=== PATIENT | male | born 1945 | race Caucasian/White ===

== ENCOUNTER 2018-06-24 08:59 | Outpatient (CLI) | payer MEDICARE | END 2018-06-24 09:00 | disposition home or self-care (01) | LOC: CTENTCT 08:59 | PROVIDERS: ATTEND Otolaryngology Plastic Surgery within the Head & Neck | DX: J32.9 Chronic sinusitis, unspecified (principal) | CPT/HCPCS: 70486 ==

== ENCOUNTER 2018-10-07 08:08 | Outpatient (CLI) | payer MEDICARE ==
--- NOTE | 2018-10-07 09:24 | CT ---
CT CHEST WITHOUT CONTRAST: Date: 10/07/18 Multiple axial tomograms obtained through chest. Pulmonary screening protocol was followed. INDICATION: Personal history of tobacco use. FINDINGS: Mild interstitial thickening in the periphery of both lungs. There is no evidence of pulmonary mass o r nodule. No evidence of infiltrate or effusion. Mediastinum unremarkable. No adenopathy. Images through upper abdomen show small cysts in the left lobe of the liver. Osseous structures unrem arkable. IMPRESSION: No acute findings. Lung-RADS 2. Recommend yearly annual low dose CT chest screening. POS: TPC
== END 2018-10-07 08:09 | disposition home or self-care (01) ==
LOC: CT 08:08
PROVIDERS: ATTEND Family Medicine
DX: Z87.891 Personal history of nicotine dependence (principal)
CPT/HCPCS: G0297

== ENCOUNTER 2018-10-16 08:56 | Outpatient (CLI) | payer MEDICARE ==
[2018-10-16] MEDS ORDERED: Gadobenate Dimeglumine 529 MG/1 ML (20ML VIAL) ONE (10:52)
--- NOTE | 2018-10-16 11:50 | MRI ---
MR OF THE PELVIS WITH AND WITHOUT CONTRAST INDICATION: Prostate Cancer COMPARISON: None TECHNIQUE: Multiplanar, multisequence MR images were obtained of the pelvis with and without IV contr ast. 14 cc of MultiHance was utilized for the examination. The examination was reviewed on a separate [employer] 3-D workstation for multiplanar metric evaluation. FINDINGS: Prostate size: The prostate measured 4.6 x 4.0 x 4.2cm. 31.47 cc. Peripheral zone: No area of restricted diffusion is seen within the peripheral zone. There are scatte red areas of wavy hypointensity involving the peripheral zone of the prostate gland. Central zone: No suspicious signal abnormality or focal lesion. There are numerous well encapsulated BPH nodule seen within the central zone of the prostate. Neural vasculature: No evidence of neurovascular invasion Regional lymphadenopathy: None Dynamic contrast enhancement: Negative. Osseous structures: No suspicious marrow signal abnormality is evident. There is a 1.3 cm right para labral cyst seen along the superior margin of the right acetabulum. Additional findings: None.. IMPRESSION: 1. PIRADS 2- Low (clinically significant cancer is unlikely to be present.) 2. Right hip paralabral cyst likely related to an underlying right acetabular labral tear.
== END 2018-10-16 08:57 | disposition home or self-care (01) ==
LOC: TBSIIMAG 08:56
PROVIDERS: ATTEND Urology
DX: C61 Malignant neoplasm of prostate (principal); M24.852 Other specific joint derangements of left hip, not elsewhere classified
CPT/HCPCS: 72197; 82565; A9577

== ENCOUNTER 2019-03-10 09:14 | Outpatient (CLI) | payer MEDICARE ==
--- NOTE | 2019-03-10 11:31 | ULT ---
SOFT TISSUE ULTRASOUND RIGHT AXILLA: Date: 03/10/19 INDICATION: Right axillary mass. COMPARISON: CT from 10/07/18 from [facility]. FINDINGS: There is a 4.4 x 1.4 cm fat signal intensity mass lesion within the palpable region and suspicious fo r subcutaneous lipoma. No additional mass lesion is noted. IMPRESSION: Subcutaneous lipoma of the right axillary region. POS: OFF
== END 2019-03-10 09:15 | disposition home or self-care (01) ==
LOC: BICULT 09:14
PROVIDERS: ATTEND Family Medicine
DX: R22.31 Localized swelling, mass and lump, right upper limb (principal); D17.39 Benign lipomatous neoplasm of skin and subcutaneous tissue of other sites
CPT/HCPCS: 76999; 80053; 80061; 85025; 85610; 85730

== ENCOUNTER 2019-03-14 06:05 | Day surgery (SDC) | payer MEDICARE ==
[2019-03-10 08:36] VITALS: BMI 24.3
[2019-03-14] MEDS ORDERED: Lidocaine 1% (PF) 30 ML VIAL ONE (08:31)
[2019-03-14] MEDS ORDERED: Verapamil 5 MG/2 ML VIAL ONE (08:31)
[2019-03-14] MEDS ORDERED: Nitroglycerin 100MG/250ML BOT 250 ML ONE (08:31)
[2019-03-14] MEDS ORDERED: Heparin 10,000 UNITS/1 ML VIAL ONE (08:31)
[2019-03-14] MEDS ORDERED: Midazolam HCl 2 mg/2 ml Vial ONE (08:46)
[2019-03-14] MEDS ORDERED: Fentanyl 100 MCG/2 ML VIAL ONE (08:46)
[2019-03-14] MEDS ORDERED: Iopamidol 370 76% 50 ML VIAL FS ONE (12:25)
[2019-03-14] MEDS ORDERED: Iopamidol 370 76% 100 ML VIAL ONE (12:25)
--- NOTE | 2019-03-14 18:51 | EKG ---
Test Reason : POST STENT - RCA Blood Pressure : / mmHG Vent. Rate : 070 BPM Atrial Rate : 070 BPM P-R Int : 186 ms QRS Dur : 096 ms QT Int : 390 ms P-R-T Axes : 064 043 050 degrees QTc Int : 421 ms Normal sinus rhythm Normal ECG No previous ECGs available Confirmed by DR. Carmencita MEDINA MD ([id number]) on 03/14/2019 6:51:10 PM Referred By: PHUC Confirmed By:DR. Carmencita MEDINA MD
== END 2019-03-14 14:06 | disposition home or self-care (01) ==
LOC: CCL 06:05
PROVIDERS: ATTEND Internal Medicine Cardiovascular Disease
PROC: 02703DZ Dilation of Coronary Artery, One Artery with Intraluminal Device, Percutaneous Approach (ICD-10-PCS; principal; 2019-03-14)
PROC: 4A023N7 Measurement of Cardiac Sampling and Pressure, Left Heart, Percutaneous Approach (ICD-10-PCS; 2019-03-14)
PROC: B2111ZZ Fluoroscopy of Multiple Coronary Arteries using Low Osmolar Contrast (ICD-10-PCS; 2019-03-14)
PROC: B2151ZZ Fluoroscopy of Left Heart using Low Osmolar Contrast (ICD-10-PCS; 2019-03-14)
DX: I25.10 Atherosclerotic heart disease of native coronary artery without angina pectoris (principal); C61 Malignant neoplasm of prostate; I65.23 Occlusion and stenosis of bilateral carotid arteries; E78.5 Hyperlipidemia, unspecified; G47.30 Sleep apnea, unspecified; Z79.51 Long term (current) use of inhaled steroids; Z79.82 Long term (current) use of aspirin; Z79.899 Other long term (current) drug therapy; Z95.5 Presence of coronary angioplasty implant and graft
CPT/HCPCS: 85347; 92928; 93005; 93458; 99152; C1769; C1876; C1887; J1644; J2001; J2250; J3010; Q9967

== ENCOUNTER 2019-07-19 06:01 | Inpatient (IN) | payer MEDICARE ==
[2019-07-19 06:32] LABS: #Basophils 0.1 thou/uL (0.0-0.2); #Eosinphils 0.2 thou/uL (0.0-0.7); #Lymphocytes 1.7 thou/uL (1.20-3.40); #Monocytes 0.8 thou/uL (0.11-0.59); #Neutrophils 4.6 thou/uL (1.40-6.50); %Basophils 0.9 % (0.0-1.0); %Eosinophils 2.2 % (0.0-10.0); %Lymphocytes 23.6 % (21.0-51.0); %Monocytes 11.1 % (0.0-10.0); %Neutrophils 62.3 % (42.0-75.0); Hemoglobin 15.4 g/dL (14.0-18.0); Mean Corpuscular HGB CONC 33.6 g/dL (32.0-36.0); Mean Corpuscular Hemoglobin 34.4 pg (27.0-31.0); Mean Platelet Volume 7.9 fL (7.4-10.4); Platelet Count 185 thou/uL (130-400); RBC Distribution Width 12.2 % (11.5-14.5); Red Blood Cell (RBC) Count 4.49 mill/uL (4.70-6.10); White Blood Cell (WBC) Count 7.4 thou/uL (4.8-10.8)
[2019-07-19 06:57] LABS: ALT (SGPT) 25 U/L (8-55); AST (SGOT) 23 U/L (5-34); Alkaline Phosphatase 83 U/L (40-110); Anion Gap 12 mmol/L (10-20); BUN (Urea Nitrogen) 14 mg/dL (8.4-25.7); Bilirubin, Total 0.5 mg/dL (0.2-1.2); CK (CPK) 82 U/L (30-200); Calc. Creatinine Clearance 0 mL/min (70-130); Carbon Dioxide 25 mmol/L (23-31); Chloride 107 mmol/L (98-107); Estimated GFR-MDRD 66; Globulin 2.6 g/dL (2.4-3.5); Glucose 137 mg/dL (83-110); Lipase 48 U/L (8-78); Potassium 3.9 mmol/L (3.5-5.1); Protein, Total 6.6 g/dL (5.8-8.1); Sodium 140 mmol/L (136-145)
[2019-07-19 07:18] LABS: CKMB 2.3 ng/mL (0-6.6)
[2019-07-19] MEDS ORDERED: Enoxaparin Sodium 80 MG/0.8 ML SYRINGE ONE (07:53)
[2019-07-19 08:51] VITALS: BMI 25.2
--- NOTE | 2019-07-19 08:59 | RAD ---
CHEST 1 VIEW: HISTORY: Chest pain. COMPARISON: None. FINDINGS: Atherosclerosis of the aortic knob. Normal cardiac silhouette. The pulmonary vessels and hilum are normal. Chronic changes of the lung parenchyma are suspected. No consolidation or mass. No pneumot horax or osseous abnormalities. IMPRESSION: 1. Atherosclerosis. 2. No acute cardiopulmonary process. POS: PPP
[2019-07-19 09:35] LABS: Troponin I 0.067 ng/mL (< 0.028)
[2019-07-19 12:44] LABS: Troponin I 0.048 ng/mL (< 0.028)
[2019-07-19] MEDS ORDERED: Nitroglycerin 0.4 MG TAB (25 Tab Bottle) SL PRN (13:00)
[2019-07-19] MEDS ORDERED: NICOTINE POLACRILEX 2 MG FS PRN (13:00)
[2019-07-19] MEDS: Nitroglycerin 2% Ointment 1 INCH/1 GM Packet TOP SCH (15:05)
--- NOTE | 2019-07-19 15:18 | CON ---
DATE OF CONSULTATION: 07/19/2019 REASON FOR CONSULTATION: Recurrent angina. PRIMARY NOVELTY TWISTER OPERATOR: Mckinley Whittington MD HISTORY OF PRESENT ILLNESS: Mr. Buck is a very pleasant 73-year-old gentleman with history of CAD, status post stent placement in the remote past. He had re-in-stent restenosis and underwent a second stent recently. A bare-metal stent was placed. He states over the last several weeks, he has had increased angina with little exertion. He has continued to take his medications as prescribed. PAST MEDICAL HISTORY: CAD, status post stent placement; hyperlipidemia; prostate cancer; sleep apnea; and carotid disease. HOME MEDICATIONS: Include; 1. Multivitamin. 2. Cialis. 3. Testosterone. 4. Vitamin B. 5. Atorvastatin. 6. Brilinta. PAST SURGICAL HISTORY: Prostate biopsy; stent placement in 2000, 2018; and appendectomy. FAMILY HISTORY: Negative for CAD. SOCIAL HISTORY: Positive tobacco use. ALLERGIES: NONE. REVIEW OF SYSTEMS: Ten-point review of systems is reviewed as above, otherwise negative. PHYSICAL EXAMINATION: GENERAL: Patient is a pleasant man, who is in no acute distress. The patient appears their stated age. VITAL SIGNS: Blood pressure 135/66, pulse 78, and temperature 98.4. NEUROLOGIC: The patient is alert and oriented x3 with no focal neurologic deficits. HEENT: Sclerae without icterus. Mouth has moist mucous membranes with normal pallor. NECK: No JVD. Carotid upstroke brisk. No bruits bilaterally. LUNGS: Clear to auscultation with unlabored respirations. BACK: No scoliosis or kyphosis. CARDIAC: Regular rate and rhythm with normal S1 and S2. No S3 or S4 noted. No significant rubs, murmurs, thrills, or gallops noted throughout the precordium. PMI is not displaced. There is no parasternal heave. ABDOMEN: Soft, nontender, nondistended. No peritoneal signs present. No hepatosplenomegaly. No abnormal striae. EXTREMITIES: 2+ femoral and 2+ dorsalis pedis pulses. No cyanosis, clubbing, or edema. SKIN: No gross abnormalities. PERTINENT LABORATORY DATA: Hemoglobin 15.4. Peak troponin 0.067, downtrending to 0.048. EKG, normal sinus rhythm, nonspecific ST-T wave changes. IMPRESSION: 1. Recurrent chest pain. 2. Coronary artery disease. 3. Status post stent placement. RECOMMENDATIONS: Mr. Buck likely has in-stent restenosis. Last stent was placed 4 months ago. At this point, we would recommend continued Lovenox to the weekend. We will add nitroglycerin paste. He does take Cialis, but states his last Cialis was on Sunday. We would recommend coronary angiography plus PCI. I discussed procedure in full detail with Mr. Buck. Risks included, not limited to the following: , stroke, [place], need for emergency surgery, loss of limb, bleeding, and infection, as well as a reaction to the dye causing kidney failure and needing long-term dialysis. I also discussed the risks of PCI to include all of the above including coronary dissection and perforation in addition to acute stent thrombosis and restenosis. All questions about the procedure were answered. Given the above, the patient agreed to proceed with coronary angiography and possible PCI. All questions were answered. He would likely benefit from a drug coated stent. He would like to think about his options. Job ID: [id number]
[2019-07-19] MEDS ORDERED: Diazepam 5 MG TAB PO PRN (17:08)
[2019-07-19] MEDS ORDERED: Diazepam 5 MG TAB PO SCH (17:15)
[2019-07-19] MEDS ORDERED: Thiamine HCl 200 MG/2 ML VIAL IM SCH (17:15)
[2019-07-19] MEDS: Atorvastatin Calcium 20 MG TAB PO SCH (20:08)
[2019-07-19] MEDS: Enoxaparin Sodium 80 MG/0.8 ML SYRINGE SC SCH (20:08)
[2019-07-19] MEDS: Aspirin 81 mg Enteric Coated Tablet PO SCH (20:08)
[2019-07-19] MEDS: TICAGRELOR 90 MG TABLET PO SCH (20:08)
[2019-07-20] MEDS: Nitroglycerin 2% Ointment 1 INCH/1 GM Packet TOP SCH ×4 (00:15→23:44)
[2019-07-20] MEDS ORDERED: Diazepam 5 MG TAB PO PRN (04:00)
--- NOTE | 2019-07-20 05:24 | HP ---
PRIMARY CARE PROVIDER: Doron Jade DO CHIEF COMPLAINT: Chest pain. HISTORY OF PRESENT ILLNESS: Mr. Buck is a pleasant 73-year-old gentleman, who was seen at [facility] on July 19, 2019. He reports that he had PCI with coronary stent in 1999. He had repeat cardiac catheterization on March 14, 2019. He was found to have severe mid RCA disease. He had PCI with 3.5 x 32 mm bare metal stent, which was on top of an old stent placed in 1999. He had no other significant coronary artery disease and was advised dual antiplatelet therapy for one month. He reports that he actually took Brilinta for two months and after discussion with his painter, Dr. Whittington, he stopped taking Brilinta. Over the last 3-4 weeks, he has been having chest discomfort. He reports that it was initially occurring mainly at night, retrosternal, radiating down the left arm, achy type of sensation. He has been taking nitrates for relief. The pain was responding to nitrates, but would recur within a couple of hours. The frequency of chest discomfort has been gradually worsening. Last night, he had multiple episodes and could not find relief. He also reports that the chest discomfort is occurring with rest. He denies any accompanying shortness of breath, nausea, vomiting, or diarrhea. He cannot recall any aggravating factors, but reports improvement with nitrates. In the emergency room, he was diagnosed with unstable angina. He received therapeutic Lovenox. He reports that after receiving Lovenox, he has not had recurrence of chest discomfort in several hours. The patient reports that he started taking Brilinta approximately a month ago and he has been taking it two times a day. His last dose was last night. REVIEW OF SYSTEMS: All systems were reviewed and found to be negative except for the pertinent positives mentioned above. PAST MEDICAL HISTORY: Prostate cancer, hypertension, and coronary artery disease. PAST SURGICAL HISTORY: Coronary stents x2, appendectomy, and sinus surgery. SOCIAL HISTORY: The patient drinks about six beers a day. He is an ex-smoker. He denies any recreational drug use. FAMILY HISTORY: He denies any family history of premature coronary artery disease. CODE STATUS: I discussed his code status. He is DNAR. PHYSICAL EXAMINATION: GENERAL: On examination, Mr. Buck is awake and alert, not in acute distress. VITAL SIGNS: Blood pressure is 135/66, pulse 78, respiratory rate 14, and oxygen saturation 97% on room air. He is afebrile. EYES: No scleral icterus. No conjunctival pallor. ENT: Moist mucosal membranes. No oropharyngeal erythema or exudates. NECK: Supple, nontender, trachea is midline. RESPIRATORY: Accessory muscles of breathing are not active. Chest wall movements are symmetric bilaterally. Lungs are clear to auscultation without wheeze, rhonchi, or crepitations. CARDIOVASCULAR: S1 and S2 are heard, regular. Peripheral pulses palpable. ABDOMEN: Soft and nontender. Bowel sounds are heard. NEUROLOGIC: Cranial nerves 2 through 12 are intact. SKIN: No rashes or subcutaneous nodules. LYMPHATIC: No cervical lymphadenopathy. MUSCULOSKELETAL: Power is 5/5 in all 4 extremities. PSYCHIATRIC: Normal mood. Normal affect. The patient is oriented to person, place, and time. LABORATORY DATA: Mr. Buck's labs and investigations were reviewed. I reviewed his electrocardiogram, which shows normal sinus rhythm, ST depressions in the lateral leads. I also reviewed his chest x-ray, which does not show any pulmonary infiltrates. He has an unremarkable CBC, unremarkable comprehensive metabolic profile, and indeterminate troponin-I of 0.048 to 0.067. ASSESSMENT AND PLAN: Mr. Buck is a pleasant 73-year-old gentleman, who was seen at [facility] on 07/19/2019. His problem list includes: 1. Chest pain: Mr. Buck is presenting with chest pain. Given his significant cardiac history, he will be admitted to the hospital for treatment for unstable angina. 2. Unstable angina: Mr. Buck has received a dose of Lovenox in the emergency room. I will continue him on therapeutic Lovenox and continue aspirin and Brilinta for now. We will await Cardiology Service recommendations. 3. Daily alcohol use: We will start him on ASE protocol. 4. Dyslipidemia: Continue atorvastatin. 5. Hypertension: Continue lisinopril. Monitor vital signs and titrate antihypertensives as needed. Many thanks for allowing me to participate in your patient's care. Please feel free to contact me with any questions or concerns. LEVEL OF RISK: High. LEVEL OF COMPLEXITY: High. Job ID: [id number]
[2019-07-20] MEDS ORDERED: Communication Order-Pharmacy FS SCH (06:30)
[2019-07-20] MEDS: Folic Acid 1 MG TAB PO SCH (09:56)
[2019-07-20] MEDS: Multivitamin W/ Minerals 1 TAB PO SCH (09:57)
[2019-07-20] MEDS: Lisinopril 2.5 MG TAB PO SCH (09:57)
[2019-07-20] MEDS: Magnesium Oxide 400 MG TAB PO SCH (09:57)
[2019-07-20] MEDS: Thiamine 100 MG TAB PO SCH (09:57)
[2019-07-20] MEDS: TICAGRELOR 90 MG TABLET PO SCH ×2 (09:57→21:08)
[2019-07-20] MEDS: Fluticasone Propionate Nasal Spray 16 gm Bottle NASAL SCH (09:58)
[2019-07-20] MEDS: Enoxaparin Sodium 80 MG/0.8 ML SYRINGE SC SCH ×2 (09:58→21:17)
[2019-07-20] MEDS: Multivit, Therapeutic 1 TAB PO SCH (09:58)
--- NOTE | 2019-07-20 12:52 | PDOC.HOSPP ---
- Subjective Encounter Date: 07/20/19 Encounter Time: 08:00 Subjective: Pt seen for followup re: unstable angina. No chest pain since admission. - Objective Vital Signs & Weight: Vital Signs (12 hours) Temp Pulse Resp BP Pulse Ox 07/20/19 11:21 98.7 F 68 14 116/59 L 95 07/20/19 07:36 97.7 F 64 16 117/64 96 07/20/19 04:00 98.3 F 72 18 96/43 L 97 Weight Weight 166 lb Result Diagrams: 07/19/19 06:11 07/19/19 06:11 Additional Labs: Labs and MARs reviewed by sc Hospitalist ROS - Review of Systems Constitutional: denies: fever, chills, sweats, weakness, malaise Respiratory: denies: cough, dry, shortness of breath, hemoptysis, SOB with excertion, pleuritic pain, sputum, wheezing Cardiovascular: denies: chest pain, palpitations, orthopnea, paroxysmal noc. dyspnea, edema, light headedness Gastrointestinal: denies: nausea, vomiting, abdominal pain, diarrhea, constipation, melena, hematochezia Musculoskeletal: denies: neck pain, shoulder pain, arm pain, back pain, hand pain, leg pain, foot pain - Medication Medications: Active Medications Generic Name Dose Route Start Last Admin Trade Name Freq PRN Reason Stop Dose Admin Aspirin 81 mg 07/19/19 21:00 07/19/19 20:08 Ecotrin PO 81 mg QPM LENNY Administration Atorvastatin Calcium 20 mg 07/19/19 21:00 07/19/19 20:08 Lipitor PO 20 mg HS LENNY Administration Enoxaparin Sodium 80 mg 07/19/19 21:00 07/20/19 09:58 Lovenox SC 07/20/19 22:00 80 mg 0900,2100 LENNY Administration Fluticasone Propionate 0 gm 07/20/19 09:00 07/20/19 09:58 Flonase Nasal [place] NASAL 2 spr DAILY LENNY Administration Folic Acid 1 mg 07/20/19 09:00 07/20/19 09:56 Folvite PO 1 mg DAILY LENNY Administration Iron/Minerals/Multivitamins 1 tab 07/20/19 09:00 07/20/19 09:57 Theragran M PO 1 tab DAILY LENNY Administration Lisinopril 2.5 mg 07/20/19 09:00 02/09/20 09:57 Zestril PO 2.5 mg DAILY LENNY Administration Magnesium Oxide 400 mg 07/20/19 09:00 07/20/19 09:57 Magnesium Oxide PO 400 mg DAILY LENNY Administration Metoprolol Succinate 25 mg 07/20/19 09:00 07/20/19 09:57 Toprol Xl PO 25 mg DAILY LENNY Administration Multivitamins 1 tab 07/20/19 09:00 07/20/19 09:58 Theragran PO Not Given DAILY [facility] Nitroglycerin 0.5 inch 07/19/19 15:00 07/20/19 08:06 Nitro-Bid 2% Ointment TOP Not Given 0700,1500,2300 LENNY Thiamine HCl 100 mg 07/20/19 09:00 07/20/19 09:57 Thiamine PO 100 mg DAILY LENNY Administration Ticagrelor 90 mg 07/19/19 21:00 07/20/19 09:57 Brilinta PO 90 mg BID LENNY Administration - Exam General Appearance: NAD Eye: anicteric sclera ENT: moist mucosa Neck: supple, symmetric, no JVD, no thyromegaly Heart: RRR, no gallops, no rubs, normal peripheral pulses Respiratory: CTAB, no wheezes, no rales, no ronchi, normal chest expansion Gastrointestinal: soft, non-tender, non-distended, normal bowel sounds Musculoskeletal: normal tone, normal strength Psychiatric: normal affect, normal behavior, A&O x 3 Hosp A/P (1) Unstable angina Status: Acute (2) HTN (hypertension) Code(s): I10 - ESSENTIAL (PRIMARY) HYPERTENSION Status: Chronic (3) Dyslipidemia Code(s): E78.5 - HYPERLIPIDEMIA, UNSPECIFIED Status: Chronic (4) Alcohol dependence, daily use Code(s): F10.20 - ALCOHOL DEPENDENCE, UNCOMPLICATED Status: Chronic - Plan continue therapeutic Lovenox. Pt will likely have cath tomorrow. HTN controlled. Continue Lipitor. Continue ASE protocol.
--- NOTE | 2019-07-20 13:39 | PDOC.CPN ---
- Subjective Date: 07/20/19 Time: 12:30 Interval history: Patient without c/o pain. Walked entire lund today. - Review of Systems General: denies: fever/chills, weight/appetite/sleep changes, night sweats, fatigue Respiratory: denies: cough, congestion, shortness of breath, exercise intolerance Cardiovascular: denies: chest pain, palpitation, edema, paroxysmal nocturnal dyspnea, orthopnea Gastrointestinal: denies: nausea, vomiting, diarrhea, constipation, abd pain, GI bleeding Musculoskeletal: denies: pain, tenderness, stiffness, swelling, arthritis/ arthralgias Neurological: denies: numbness, syncope, seizure, weakness - Objective Allergies/Adverse Reactions: Allergies Allergy/AdvReac Type Severity Reaction Status Date / Time No Known Allergies Allergy Verified 07/19/19 08:52 Visit Medications: Current Medications Aspirin (Ecotrin) 81 mg PO QPM [facility] Last Admin: 07/19/19 20:08 Dose: 81 mg Atorvastatin Calcium (Lipitor) 20 mg PO HS [facility] Last Admin: 07/19/19 20:08 Dose: 20 mg Diazepam (Valium) 5 mg PO Q4H PRN PRN Reason: FOR ASE 10 OR GREATER Enoxaparin Sodium (Lovenox) 80 mg SC 0900,2100 [facility] Stop: 07/20/19 22:00 Last Admin: 07/20/19 09:58 Dose: 80 mg Fluticasone Propionate (Flonase Nasal [place]) 0 gm NASAL DAILY [facility] Last Admin: 07/20/19 09:58 Dose: 2 spr Folic Acid (Folvite) 1 mg PO DAILY [facility] Last Admin: 07/20/19 09:56 Dose: 1 mg Sodium Chloride (Normal Saline 0.9%) 1,000 mls @ 100 mls/hr IV .Q10H [facility] Iron/Minerals/Multivitamins (Theragran M) 1 tab PO DAILY [facility] Last Admin: 07/20/19 09:57 Dose: 1 tab Lisinopril (Zestril) 2.5 mg PO DAILY [facility] Last Admin: 07/20/19 09:57 Dose: 2.5 mg Magnesium Oxide (Magnesium Oxide) 400 mg PO DAILY [facility] Last Admin: 07/20/19 09:57 Dose: 400 mg Metoprolol Succinate (Toprol Xl) 25 mg PO DAILY [facility] Last Admin: 07/20/19 09:57 Dose: 25 mg Miscellaneous Information (Communication Order-Pharmacy) 0 each FS ONE [facility] Stop: 07/21/19 20:00 Multivitamins (Theragran) 1 tab PO DAILY [facility] Last Admin: 07/20/19 09:58 Dose: Not Given Nitroglycerin (Nitrostat) 0.4 mg SL Q5M PRN PRN Reason: Chest Pain Nitroglycerin (Nitro-Bid 2% Ointment) 0.5 inch TOP 0700,1500,2300 [facility] Last Admin: 07/20/19 08:06 Dose: Not Given Nicotine Polacrilex ([Nicotine Gum] 2 Mg) 0 each FS Q1H PRN PRN Reason: Smoking Cessation Thiamine HCl (Thiamine) 100 mg PO DAILY [facility] Last Admin: 07/20/19 09:57 Dose: 100 mg Ticagrelor (Brilinta) 90 mg PO BID [facility] Last Admin: 07/20/19 09:57 Dose: 90 mg Vital Signs & Weight: Vital Signs Temp Pulse Resp BP Pulse Ox 07/20/19 11:21 98.7 F 68 14 116/59 L 95 07/20/19 07:36 97.7 F 64 16 117/64 96 07/20/19 04:00 98.3 F 72 18 96/43 L 97 Weight 166 lb - Physical Exam General: alert & oriented x3, appears well HEENT: mucus membranes moist Neck: supple neck Cardiac: regular rate and rhythm Lungs: clear to auscultation Neuro: grossly intact Abdomen: unremarkable, soft Extremities: no cyanosis Skin: clear Musculoskeletal: no pain - Labs Result Diagrams: 07/19/19 06:11 07/19/19 06:11 Troponin/CKMB CK-MB (CK-2) 2.3 ng/mL (0-6.6) 07/19/19 06:11 Troponin I 0.048 ng/mL (< 0.028) H 07/19/19 11:58 - Assessment/Plan Assessment/Plan: 1. UA 2. CAD s/p previous PCI Currently pain controlled. Will keep NPO and await angio in AM.
[2019-07-20] MEDS: Aspirin 81 mg Enteric Coated Tablet PO SCH (21:08)
[2019-07-20] MEDS: Atorvastatin Calcium 20 MG TAB PO SCH (21:08)
[2019-07-21 04:54] LABS: #Basophils 0.1 thou/uL (0.0-0.2); #Eosinphils 0.2 thou/uL (0.0-0.7); #Lymphocytes 2.6 thou/uL (1.20-3.40); #Monocytes 0.9 thou/uL (0.11-0.59); #Neutrophils 4.7 thou/uL (1.40-6.50); %Basophils 0.9 % (0.0-1.0); %Eosinophils 1.9 % (0.0-10.0); %Monocytes 10.5 % (0.0-10.0); %Neutrophils 55.8 % (42.0-75.0); Hemoglobin 16.1 g/dL (14.0-18.0); Mean Corpuscular HGB CONC 33.1 g/dL (32.0-36.0); Mean Corpuscular Hemoglobin 33.4 pg (27.0-31.0); Mean Platelet Volume 8.2 fL (7.4-10.4); Platelet Count 182 thou/uL (130-400); RBC Distribution Width 11.9 % (11.5-14.5); Red Blood Cell (RBC) Count 4.81 mill/uL (4.70-6.10); White Blood Cell (WBC) Count 8.4 thou/uL (4.8-10.8)
[2019-07-21 05:19] LABS: Anion Gap 13 mmol/L (10-20); BUN (Urea Nitrogen) 16 mg/dL (8.4-25.7); Calc. Creatinine Clearance 76 mL/min (70-130); Carbon Dioxide 23 mmol/L (23-31); Chloride 108 mmol/L (98-107); Estimated GFR-MDRD 80; Glucose 97 mg/dL (83-110); Potassium 4.2 mmol/L (3.5-5.1); Sodium 140 mmol/L (136-145)
[2019-07-21] MEDS: Sodium Chloride 0.9% 1,000 ML IV SCH ×2 (06:06→16:00)
[2019-07-21] MEDS: Nitroglycerin 2% Ointment 1 INCH/1 GM Packet TOP SCH ×2 (06:36→14:29)
[2019-07-21] MEDS: Folic Acid 1 MG TAB PO SCH (07:40)
[2019-07-21] MEDS: Fluticasone Propionate Nasal Spray 16 gm Bottle NASAL SCH (07:40)
[2019-07-21] MEDS: Lisinopril 2.5 MG TAB PO SCH (07:41)
[2019-07-21] MEDS: Magnesium Oxide 400 MG TAB PO SCH (07:41)
[2019-07-21] MEDS: Multivitamin W/ Minerals 1 TAB PO SCH (07:42)
[2019-07-21] MEDS: Multivit, Therapeutic 1 TAB PO SCH (07:42)
[2019-07-21] MEDS: Thiamine 100 MG TAB PO SCH (07:42)
[2019-07-21] MEDS: TICAGRELOR 90 MG TABLET PO SCH (07:43)
[2019-07-21] MEDS ORDERED: Heparin (Artline) 1,000 ML ONE (08:21)
[2019-07-21] MEDS ORDERED: Lidocaine 1% (PF) 30 ML VIAL ONE (08:21)
[2019-07-21] MEDS ORDERED: Fentanyl 100 MCG/2 ML VIAL ONE (08:27)
[2019-07-21] MEDS ORDERED: Midazolam HCl 2 mg/2 ml Vial ONE (08:27)
[2019-07-21] MEDS ORDERED: Heparin 10,000 UNITS/1 ML VIAL ONE (08:41)
[2019-07-21] MEDS ORDERED: Nitroglycerin 100MG/250ML BOT 250 ML ONE (08:41)
[2019-07-21] MEDS ORDERED: TICAGRELOR 90 MG TABLET ONE (09:21)
[2019-07-21] MEDS ORDERED: Heparin (Artline) 500 ML ONE (09:21)
[2019-07-21] MEDS ORDERED: Morphine 2 MG/ML SYRINGE SLOW IVP PRN (09:25)
[2019-07-21] MEDS ORDERED: Sodium Chloride 0.9% 500 ML IV SCH (09:30)
[2019-07-21] MEDS ORDERED: Ondansetron PF 4 MG/2 ML Vial ONE (10:06)
[2019-07-21] MEDS ORDERED: Iopamidol 370 76% 100 ML VIAL ONE (15:19)
[2019-07-21] MEDS ORDERED: Iopamidol 370 76% 50 ML VIAL FS ONE (15:19)
[2019-07-21 15:52] VITALS: BP 126/58; TEMP 97.5
--- NOTE | 2019-07-22 01:26 | DIS ---
DATE OF ADMISSION: 07/19/2019 DATE OF DISCHARGE: 07/21/2019 PRIMARY CARE PROVIDER: Doron Jade, DO DISCHARGE DIAGNOSIS: Unstable angina. CONDITION OF PATIENT ON THE DAY OF DISCHARGE: Stable. I assessed Mr. Buck on the day of discharge. He denies any chest pain or shortness of breath. Vital signs are stable. S1 and S2 are heard, regular. Lungs are clear to auscultation bilaterally. CONSULTATIONS DURING THIS HOSPITALIZATION: Cardiology, Dr. Hernandez. POST-ACUTE CARE FOLLOWUP: With primary care provider in 3 days and with Cardiology, Dr. Whittington in 2 weeks. DISCHARGE MEDICATIONS: 1. Nicotine gum p.r.n. 2. Aspirin 81 mg daily. 3. Atorvastatin 20 mg at bedtime. 4. Flonase 1 spray to each naris daily. 5. Lisinopril 2.5 mg daily. 6. Multivitamins one capsule daily. 7. Naproxen p.r.n. 8. Nitroglycerin has been discontinued. 9. Cialis 20 mg at bedtime. 10. Testosterone 1 ampule intramuscularly every two weeks. 11. Toprol-XL 25 mg daily. 12. Thiamine 100 mg daily. 13. Brilinta 90 mg 2 times a day. Please note that Toprol-XL and thiamine as well as Brilinta were started during this hospitalization. The patient was previously taking Brilinta, but not on a consistent basis. Nitrates were discontinued during this hospitalization. HOSPITAL COURSE: Mr. Buck is a pleasant 73-year-old gentleman, who was admitted to [facility] on July 19, 2019 for unstable angina. Please refer to my history and physical note dated July 19, 2019 for further details. He was started on therapeutic Lovenox with resolution of his symptoms. He was seen by Cardiology Service. On July 21, he underwent cardiac catheterization. He was found to have severe RCA in-stent restenosis. He had PCI to mid RCA with a 3.5 x 38 mm synergy drug-eluting stent with good result. He has been recommended dual antiplatelet therapy with Brilinta and aspirin. He is being discharged home in a stable condition. On the day of discharge, he has sodium 140, potassium 4.2, creatinine 0.93, white count 8400, hemoglobin 16.1, and platelet count 182,000. Many thanks for allowing me to participate in your patient's care. Please feel free to contact me with any questions or concerns. ACTIVITY: As tolerated. DIET: Nutrition: Heart healthy diet. DISCHARGE DESTINATION: Home. TIME SPENT: Total amount of time spent coordinating this discharge: 32 minutes. Job ID: [id number]
== END 2019-07-21 17:17 | disposition home or self-care (01) | DRG 247 ==
LOC: ERS 06:01 → 2NO 08:17
PROVIDERS: ADMIT Internal Medicine; ATTEND Emergency Medicine
PROC: 027034Z Dilation of Coronary Artery, One Artery with Drug-eluting Intraluminal Device, Percutaneous Approach (ICD-10-PCS; principal; 2019-07-21)
PROC: 4A023N7 Measurement of Cardiac Sampling and Pressure, Left Heart, Percutaneous Approach (ICD-10-PCS; 2019-07-21)
PROC: B2111ZZ Fluoroscopy of Multiple Coronary Arteries using Low Osmolar Contrast (ICD-10-PCS; 2019-07-21)
PROC: B2151ZZ Fluoroscopy of Left Heart using Low Osmolar Contrast (ICD-10-PCS; 2019-07-21)
DX: T82.855A Stenosis of coronary artery stent, initial encounter (principal); I25.110 Atherosclerotic heart disease of native coronary artery with unstable angina pectoris; Z95.5 Presence of coronary angioplasty implant and graft; Z85.46 Personal history of malignant neoplasm of prostate; Z90.49 Acquired absence of other specified parts of digestive tract; Z87.891 Personal history of nicotine dependence; Z66 Do not resuscitate; E78.5 Hyperlipidemia, unspecified; I10 Essential (primary) hypertension; G47.00 Insomnia, unspecified; Z79.899 Other long term (current) drug therapy; F10.20 Alcohol dependence, uncomplicated
CPT/HCPCS: 36415; 71045; 80048; 80053; 82550; 82553; 83690; 84484; 85025; 85347; 92928; 93005; 93458; 93798; 96372; 99152; 99153; C1769; C1874; C1887; C9600; J1644; J1650; J2001; J2250; J2405; J3010; J3411; J3475; J3490; Q9967

== ENCOUNTER 2019-10-09 07:36 | Outpatient (CLI) | payer MEDICARE ==
--- NOTE | 2019-10-09 09:06 | CT ---
Exam: Noncontrast chest CT; CT lung scan low dose HISTORY:Personal history of nicotine dependence. History of 1 pack per day for 40 years. Stopped smok ing 5 years ago. COMPARISON: 10/07/2018 TECHNIQUE: Low-dose screening lung CT is performed utilizing institutional protocol FINDINGS: Lung screening specific (LUNG-RADS): 1, negative exam. No CT evidence of suspicious masses or nodules . Potential significant incidentals (lung RADS category S): None Pulmonary incidentals:Stable nonspecific septal thickening. Other incidentals: Stable hypodensity in the left hepatic lobe compatible with a complex cyst measuri ng 1.4 x 1.3 cm, unchanged IMPRESSION: 1. Lung RADS 1 negative exam 2. Lung [place] category S: Negative. No new or unknown potential significant incidental findings requir ing urgent additional evaluation 3. Other incidentals as above. Recommendation: Continued routine annual low-dose lung screening CT. Follow-up in one year.
== END 2019-10-09 07:37 | disposition home or self-care (01) ==
LOC: BICCT 07:36
PROVIDERS: ATTEND Family Medicine
DX: Z12.2 Encounter for screening for malignant neoplasm of respiratory organs (principal); R91.8 Other nonspecific abnormal finding of lung field; Z87.891 Personal history of nicotine dependence
CPT/HCPCS: G0297

== ENCOUNTER 2019-11-17 19:30 | Outpatient (CLI) | payer MEDICARE | END 2019-11-17 19:31 | disposition home or self-care (01) | LOC: SLEEPLAB 19:30 | PROVIDERS: ATTEND Internal Medicine Critical Care Medicine | DX: G47.33 Obstructive sleep apnea (adult) (pediatric) (principal); R06.83 Snoring; I25.10 Atherosclerotic heart disease of native coronary artery without angina pectoris; R09.89 Other specified symptoms and signs involving the circulatory and respiratory systems; G47.00 Insomnia, unspecified; G47.10 Hypersomnia, unspecified; I10 Essential (primary) hypertension; G47.31 Primary central sleep apnea | CPT/HCPCS: 95810 ==

== ENCOUNTER 2019-12-05 19:00 | Outpatient (CLI) | payer MEDICARE | END 2019-12-05 19:01 | disposition home or self-care (01) | LOC: SLEEPLAB 19:00 | PROVIDERS: ATTEND Internal Medicine Critical Care Medicine | DX: G47.33 Obstructive sleep apnea (adult) (pediatric) (principal); R09.89 Other specified symptoms and signs involving the circulatory and respiratory systems; R06.83 Snoring; I25.10 Atherosclerotic heart disease of native coronary artery without angina pectoris | CPT/HCPCS: 95811 ==

== ENCOUNTER 2020-08-18 08:08 | Outpatient (CLI) | payer MEDICARE ==
[2020-08-18] MEDS ORDERED: Magnevist 469MG/ML 20 ML VIAL ONE (12:16)
== END 2020-08-18 08:09 | disposition home or self-care (01) ==
LOC: TBSIIMAG 08:08
PROVIDERS: ATTEND Urology
DX: C61 Malignant neoplasm of prostate (principal)
CPT/HCPCS: 72197; 82565; A9579

== ENCOUNTER 2020-08-31 06:37 | Emergency (ER) | payer MEDICARE ==
[2020-08-31] MEDS ORDERED: Ondansetron ODT 4 MG TAB ONE (07:07)
[2020-08-31] MEDS ORDERED: Morphine 4 MG/ML VIAL ONE (07:07)
== END 2020-08-31 09:23 | disposition home or self-care (01) ==
LOC: ERS 06:37
DX: M54.16 Radiculopathy, lumbar region (principal); I10 Essential (primary) hypertension; Z95.5 Presence of coronary angioplasty implant and graft; Z87.891 Personal history of nicotine dependence; Z79.82 Long term (current) use of aspirin; Z79.899 Other long term (current) drug therapy
CPT/HCPCS: 96372; 99283; J2270; Q0162

== ENCOUNTER 2020-10-13 10:12 | Outpatient (CLI) | payer MEDICARE ==
[2020-10-13 12:02] LABS: Hemoglobin 12.9 g/dL (13.5-17.5); Mean Corpuscular HGB CONC 32.9 g/dL (32.0-36.0); Mean Corpuscular Hemoglobin 30.9 pg (27.0-33.0); Mean Corpuscular Volume 93.8 fl (81.2-95.1); Mean Platelet Volume 10.2 fl (7.4-10.4); Platelet Count 229 10x3/uL (150-450); RBC Distribution Width 13.6 % (11.5-14.5); Red Blood Cell (RBC) Count 4.18 10x6/uL (4.32-5.72); White Blood Cell (WBC) Count 6.7 10x3/uL (3.5-10.5)
[2020-10-13 12:33] LABS: Anion Gap 14 mmol/L (10-20); BUN (Urea Nitrogen) 13 mg/dL (8.4-25.7); Calc. Creatinine Clearance 0 mL/min (70-130); Calcium 9.1 mg/dL (7.8-10.44); Carbon Dioxide 25 mmol/L (23-31); Chloride 105 mmol/L (98-107); Glucose 100 mg/dL (83-110); Potassium 4.2 mmol/L (3.5-5.1); Sodium 140 mmol/L (136-145)
[2020-10-13 18:21] LABS: SARS-CoV-2 PCR by NAA Not Detected (NotDetected)
== END 2020-10-13 10:13 | disposition home or self-care (01) ==
LOC: LABBT 10:12
PROVIDERS: ATTEND Neurological Surgery
DX: Z01.818 Encounter for other preprocedural examination (principal); M48.062 Spinal stenosis, lumbar region with neurogenic claudication; Z20.822 Contact with and (suspected) exposure to COVID-19
CPT/HCPCS: 80048; 85027; 93005; U0003; U0005; 87635; 93010

== ENCOUNTER 2020-10-18 06:53 | Observation (INO) | payer MEDICARE ==
[2020-10-15 12:50] VITALS: BMI 24.3
[2020-10-18] MEDS ORDERED: Fentanyl 250 MCG/5 ML VIAL ONE (09:17)
[2020-10-18] MEDS ORDERED: Rocuronium Bromide 10 MG/ML (10ML VIAL) ONE (09:29)
[2020-10-18] MEDS ORDERED: Lidocaine 1% PF 5 ML VIAL ONE (09:29)
[2020-10-18] MEDS ORDERED: PROPOFOL 200 MG/20 ML VIAL ONE (09:29)
[2020-10-18] MEDS ORDERED: Ondansetron PF 4 MG/2 ML Vial ONE (09:29)
[2020-10-18] MEDS ORDERED: Dexamethasone 20 MG/5 ML VIAL ONE (09:29)
[2020-10-18] MEDS ORDERED: Ketorolac Tromethamine 30 MG/ML VIAL ONE (09:29)
[2020-10-18] MEDS ORDERED: SUGAMMADEX SODIUM 200 MG/2 ML VIAL ONE (10:46)
[2020-10-18] MEDS ORDERED: Promethazine HCl 25 MG/ML VIAL IM PRN ×2 (11:13→12:45)
[2020-10-18] MEDS ORDERED: PACU-Morphine 4MG/ML VIAL SLOW IVP PRN (11:13)
[2020-10-18] MEDS ORDERED: Morphine Sulfate 2 MG/ML SYRINGE SLOW IVP PRN (11:13)
[2020-10-18] MEDS ORDERED: Ondansetron HCl/PF 4 MG/2 ML Vial IVP PRN (11:13)
[2020-10-18] MEDS ORDERED: HYDROmorphone 2 MG/ML VIAL SLOW IVP PRN (11:13)
[2020-10-18] MEDS ORDERED: Promethazine HCl 25 MG/ML VIAL SLOW IVP PRN (11:13)
[2020-10-18] MEDS ORDERED: HYDROmorphone 0.5 MG/0.5 ML SYRINGE ONE ×3 (11:41→12:13)
[2020-10-18] MEDS ORDERED: Tamsulosin HCl 0.4 MG CAP ONE (12:14)
[2020-10-18] MEDS ORDERED: Ondansetron PF 4 MG/2 ML Vial IM PRN (12:33)
[2020-10-18] MEDS ORDERED: diphenhydrAMINE 25 MG CAP PO PRN (12:45)
[2020-10-18] MEDS ORDERED: Morphine 2 MG/ML VIAL SLOW IVP PRN (12:45)
[2020-10-18] MEDS ORDERED: traMADol HCl 50 MG TAB PO PRN ×2 (12:45)
[2020-10-18] MEDS ORDERED: Mag-Al 1200 mg/1200 mg/30 ML UDCUP PO PRN (12:45)
[2020-10-18] MEDS ORDERED: Promethazine HCl 12.5 MG SUPP PR PRN (12:45)
[2020-10-18] MEDS ORDERED: diphenhydrAMINE 50 MG/ML VIAL IVP PRN (12:45)
[2020-10-18] MEDS ORDERED: Milk Of Magnesia 30 ML UDCUP PO PRN (12:45)
[2020-10-18] MEDS ORDERED: Promethazine 25 MG TAB PO PRN (12:45)
[2020-10-18] MEDS ORDERED: Morphine 4 MG/ML VIAL SLOW IVP PRN (12:45)
[2020-10-18] MEDS ORDERED: Fentanyl 100 MCG/2 ML VIAL ONE (12:55)
[2020-10-18] MEDS: Sodium Chloride 0.9% 1,000 ML IV SCH (14:02)
[2020-10-18] MEDS ORDERED: Ondansetron PF 4 MG/2 ML Vial IVP PRN (14:15)
[2020-10-18] MEDS: HYDROcodone/Acetaminophen 10/325 mg Tablet PO PRN ×2 (17:02→21:11)
[2020-10-18] MEDS: CEFAZOLIN 2 GM in Premix Bag 1 BAG IVPB SCH (18:21)
[2020-10-19] MEDS: Sodium Chloride 0.9% 1,000 ML IV SCH ×2 (03:14→17:19)
[2020-10-19] MEDS: CEFAZOLIN 2 GM in Premix Bag 1 BAG IVPB SCH ×3 (03:14→19:57)
[2020-10-19] MEDS: HYDROcodone/Acetaminophen 10/325 mg Tablet PO PRN ×4 (03:17→20:16)
[2020-10-19] MEDS: Tamsulosin HCl 0.4 MG CAP PO SCH (05:19)
[2020-10-19] MEDS: tiZANidine HCl 4 MG TAB PO PRN (22:48)
[2020-10-19] MEDS ORDERED: Dexamethasone 4 mg/ml Vial SLOW IVP SCH (23:30)
[2020-10-20] MEDS: HYDROcodone/Acetaminophen 10/325 mg Tablet PO PRN ×3 (02:36→13:39)
[2020-10-20] MEDS: Sodium Chloride 0.9% 1,000 ML IV SCH (04:56)
[2020-10-20] MEDS: Tamsulosin HCl 0.4 MG CAP PO SCH (05:35)
[2020-10-20] MEDS: tiZANidine HCl 4 MG TAB PO PRN (09:00)
[2020-10-20 11:27] VITALS: BP 107/66; TEMP 98.5
== END 2020-10-20 15:56 | disposition home or self-care (01) ==
LOC: SDC 06:53 → T4-B 11:38
PROVIDERS: ADMIT Neurological Surgery; ATTEND Neurological Surgery
PROC: 0SG10AJ Fusion of 2 or more Lumbar Vertebral Joints with Interbody Fusion Device, Posterior Approach, Anterior Column, Open Approach (ICD-10-PCS; principal; 2020-10-18)
PROC: 0SG1071 Fusion of 2 or more Lumbar Vertebral Joints with Autologous Tissue Substitute, Posterior Approach, Posterior Column, Open Approach (ICD-10-PCS; 2020-10-18)
PROC: 0ST20ZZ Resection of Lumbar Vertebral Disc, Open Approach (ICD-10-PCS; 2020-10-18)
DX: M48.062 Spinal stenosis, lumbar region with neurogenic claudication (principal); I25.10 Atherosclerotic heart disease of native coronary artery without angina pectoris; Z79.899 Other long term (current) drug therapy
CPT/HCPCS: 20930; 20936; 22633; 22634; 22853 ×2; 76000; 82962; 96374; 96375 ×2; 96376; C1713 ×3; C1768; G0378 ×3; 36416; J0690; J1100; J1170; J1885; J2270; J2405; J2704; J3010; J3370; J3490

== ENCOUNTER 2020-11-04 10:59 | Outpatient (CLI) | payer MEDICARE | END 2020-11-04 11:00 | disposition home or self-care (01) | LOC: TBSIIMAG 10:59 | PROVIDERS: ATTEND Neurological Surgery | DX: M48.062 Spinal stenosis, lumbar region with neurogenic claudication (principal); M47.816 Spondylosis without myelopathy or radiculopathy, lumbar region; Z98.890 Other specified postprocedural states | CPT/HCPCS: 72100 ==

== ENCOUNTER 2020-11-18 07:04 | Outpatient (CLI) | payer MEDICARE | END 2020-11-18 07:05 | disposition home or self-care (01) | LOC: BICCT 07:04 | PROVIDERS: ATTEND Family Medicine | DX: Z12.2 Encounter for screening for malignant neoplasm of respiratory organs (principal); Z87.891 Personal history of nicotine dependence | CPT/HCPCS: 71271 ==

== ENCOUNTER 2020-12-17 08:39 | Outpatient (CLI) | payer MEDICARE | END 2020-12-17 08:40 | disposition home or self-care (01) | LOC: BICRAD 08:39 | PROVIDERS: ATTEND Neurological Surgery | DX: M48.062 Spinal stenosis, lumbar region with neurogenic claudication (principal); M47.816 Spondylosis without myelopathy or radiculopathy, lumbar region; Z98.890 Other specified postprocedural states | CPT/HCPCS: 72100 ==

== ENCOUNTER 2021-06-24 09:07 | Outpatient (CLI) | payer MEDICARE | END 2021-06-24 09:08 | disposition home or self-care (01) | LOC: BICRAD 09:07 | PROVIDERS: ATTEND Psychiatry & Neurology Neurology | DX: R20.2 Paresthesia of skin (principal); M47.812 Spondylosis without myelopathy or radiculopathy, cervical region | CPT/HCPCS: 72050 ==

== ENCOUNTER 2021-11-22 07:01 | Outpatient (CLI) | payer MEDICARE | END 2021-11-22 07:02 | disposition home or self-care (01) | LOC: BICCT 07:01 | PROVIDERS: ATTEND Family Medicine | DX: Z12.2 Encounter for screening for malignant neoplasm of respiratory organs (principal); Z87.891 Personal history of nicotine dependence | CPT/HCPCS: 71271 ==

== ENCOUNTER 2022-05-23 09:06 | Outpatient (CLI) | payer MEDICARE | END 2022-05-23 09:07 | disposition home or self-care (01) | LOC: BICMAMMO 09:06 | PROVIDERS: ATTEND Nurse Practitioner Family | DX: Z13.820 Encounter for screening for osteoporosis (principal); C61 Malignant neoplasm of prostate | CPT/HCPCS: 77080 ==

== ENCOUNTER 2022-07-17 12:41 | Outpatient (CLI) | payer MEDICARE ==
[~2022-07-17 12:41] MED LIST: Magnevist 469MG/ML 20 ML VIAL ONE
== END 2022-07-17 12:42 | disposition home or self-care (01) ==
LOC: TBSIIMAG 12:41
PROVIDERS: ATTEND Urology
DX: C61 Malignant neoplasm of prostate (principal)
CPT/HCPCS: 72197

== ENCOUNTER 2023-02-19 08:29 | Outpatient (CLI) | payer MEDICARE | END 2023-02-19 08:30 | disposition home or self-care (01) | LOC: SCSMRI 08:29 | PROVIDERS: ATTEND Neurological Surgery | DX: M48.02 Spinal stenosis, cervical region (principal) | CPT/HCPCS: 72141 ==